=== PATIENT | male | born 1975 | race Caucasian/White ===

== ENCOUNTER 2016-12-03 17:30 | Emergency (ER) | payer SELFPAY ==
--- NOTE | ~2016-12-03 | EKG ---
PATIENT: LENORE BLEVINS UNIT #: [id number] Ventricular Rate: 83 BPM Atrial Rate: 83 BPM P-R Interval: 158 ms QRS Duration: 82 ms Q-T Interval: 378 ms QTC Calculation(Bezet): 444 ms P [place]: 30 degrees Calculated R [place]: 33 degrees Calculated T [place]: -13 degrees Diagnosis Line: Normal sinus rhythm Diagnosis Line: T wave abnormality, consider inferior ischemia Diagnosis Line: Abnormal ECG Diagnosis Line: No previous ECGs available Diagnosis Line: Confirmed by JAMES GARCIA MD ([id number]) on 12/06/2016 Diagnosis Line: 3:59:55 PM INTERPRETING MD: RADHA REDDING
--- NOTE | ~2016-12-03 | CR72 ---
[facility] A Service of [facility] & [facility] RADIOLOGY TEXT RESULTS PATIENT: LENORE BLEVINS LOCATION: [facility] : 73 UNIT #: [id number] AGE: [address]: Brandyn Garcia DO SEX: M ORDER DR: [id number] [facility] [address] [place], [place] [address] [id number] E MR#: [id number] Acc #: [id number] NAME: LENORE BLEVINS : 1975 SEX: M STUDY DATE/TIME: 12/03/2016 17:11 UNIT: [facility] ROOM: STUDY DESCRIPTION: CR Chest Single View Portable Attending Physician: Brandyn Garcia D.O. Ordering Physician: Brandyn Garcia D.O. Primary Care Physician: Primary Care Physician No MEDICAL IMAGING REPORT This report is preliminary unless electronic signature is present EXAM Portable chest x-ray 12/03/2016 HISTORY Chest pain, short of air, began today, bronchitis FINDINGS AP radiograph of the chest is presented. No comparison. No acute appearing bony abnormality. Mild cardiac enlargement. Lungs well inflated. Linear scarring or atelectasis left lower lung zone. No clear indication of acute infectious or inflammatory disease, pleural effusion or pneumothorax. No suspicious nodule. Dictated by... Dread Gr M.D. THIS IS AN ELECTRONICALLY VERIFIED REPORT Dread Gr M.D. at 12/04/2016 2:14 PM SHIVK/ruy TD: 12/03/2016 19:23 JOB #: [id number] MEDICAL IMAGING REPORT Page 1 of 1 COPY
[2016-12-03 17:05] LABS: POC - CKMB 2.1 ng/mL (0.0-7.9); POC - TROPONIN <0.05 ng/mL (<=0.05)
[2016-12-03 17:22] LABS: BASOPHIL# 0.1 X10e3 (0-0.3); BASOPHIL% 0.6 % (0-2.5); EOSINOPHIL# 0.4 X10e3 (0-0.7); EOSINOPHIL% 3.6 % (0.0-7.0); HEMATOCRIT 46.7 % (38.0-50.0); HEMOGLOBIN 15.9 gm/dL (13.0-16.0); LYMPHOCYTE# 2.4 X10e3 (1.0-3.5); MEAN CELL VOLUME 86.9 FL (83-96); MEAN CORPUSCULAR HEMOGLOBIN 29.7 PG (28-34); MEAN CORPUSCULAR HGB CONC 34.2 g/dL (30-36); MEAN PLATELET VOLUME 7.7 FL (6.5-11.5); MONOCYTE# 0.6 X10e3 (0-1.0); MONOCYTE% 5.8 % (3.0-12.0); NEUTROPHIL# 6.7 X10e3 (1.5-7.1); PLATELET COUNT 250 X10e3 (140-420); RED BLOOD COUNT 5.37 X10e (3.90-5.60); RED CELL DISTRIBUTION WIDTH 12.7 % (11.0-15.5); WHITE BLOOD COUNT 10.2 X10e3 (4.0-10.5)
[2016-12-03 17:24] LABS: DIFF IND NO
[~2016-12-03 17:30] MED LIST: ULTRAM PO
[2016-12-03 17:34] LABS: PARTIAL THROMBOPLASTIN TIME 25.9 SECONDS (23.5-31.3); PROTHROMBIN TIME (PATIENT) 10.2 SECONDS (9.6-11.5)
[2016-12-03 17:43] LABS: ALBUMIN SERUM 4.2 g/dL (3.5-5.0); BILIRUBIN, DIRECT 0.1 mg/dL (0.0-0.2); BILIRUBIN,INDIRECT 0.2 mg/dL (0.0-0.9); BILIRUBIN,TOTAL 0.3 mg/dL (0.2-2.0); BUN/CREATININE RATIO 12.5; CALCIUM SERUM 8.8 mg/dL (8.4-10.2); CREATININE SERUM 1.2 mg/dL (0.6-1.4); GLOM FILT RATE Estimated 74.7 mL/min (>60); PROTEIN TOTAL SERUM 6.7 g/dL (6.0-8.3)
== END 2016-12-03 18:39 | disposition home or self-care (01) ==
LOC: CED 17:30
PROVIDERS: Emergency Medicine
DX: R07.9 Chest pain, unspecified (principal); F17.200 Nicotine dependence, unspecified, uncomplicated
CPT/HCPCS: 36415; 71010; 80048; 80076; 82553; 84484; 85025; 85610; 85730; 93005; 99284